=== PATIENT | male | born 1960 | race Two or more races ===

== ENCOUNTER 2019-08-09 10:14 | Emergency (ER) | payer OTHER ==
[~2019-08-09] VITALS: Ht 188 cm; Wt 102.1 kg
[2019-08-09] MEDS ORDERED: HYDROCODONE/APAP 10-325 MG TABLET PO ONE (10:45)
[2019-08-09] MEDS ORDERED: HYDROCODONE/APAP 10-325 MG TABLET ONE (10:53)
--- NOTE | 2019-08-09 10:58 | NUR ---
pt is in room #2b. dr rouse evaluated the pt.
--- NOTE | 2019-08-09 12:21 | NUR ---
PT WAS D/C'd TO HOME. D/C INSTRUCTIONS GIVEN TO THE PT.
[2019-08-09 12:22] VITALS: BP 141/71
== END 2019-08-09 12:23 | disposition home or self-care (01) ==
LOC: ER 10:18
DX: S89.92XA Unspecified injury of left lower leg, initial encounter (principal); W01.0XXA Fall on same level from slipping, tripping and stumbling without subsequent striking against object, initial encounter; Y93.89 Activity, other specified; Y92.89 Other specified places as the place of occurrence of the external cause; Y99.8 Other external cause status
CPT/HCPCS: 73551; A4663